=== PATIENT | female | born 1980 | race Caucasian/White ===

== ENCOUNTER 2022-09-22 08:20 | Outpatient (CLI) | payer BC, SELFPAY ==
--- NOTE | ~2022-09-22 | CT_ITS ---
EXAMINATION: CT abdomen pelvis w con DATE: 09/22/2022 09:42 INDICATION: Left lower quadrant abdominal pain TECHNIQUE: Computed tomography (CT) of the abdomen and pelvis was performed with 100 mL Omnipaque-350 intravenous contrast. Automated exposure control and iterative reconstruction technique were employe d. The dose-length product was 487.44 mGy-cm. COMPARISON: None FINDINGS: Lung bases are clear. Heart size is normal. No pericardial or pleural effusion. Liver, gallbladder, s pleen, pancreas and bilateral adrenal glands are normal. Bilateral nephrolithiasis with obstructing s tone/stones in the proximal left ureter resulting in moderate left hydronephrosis. The overall cranio caudal length measures 9 mm, unclear whether this represents a single irregular stone or more likely a collection of 3 separate 3-4 mm stones. There are 3 additional stones measuring up to 3 mm an infer ior calyx of the left kidney. There are 3 nonobstructing stones in the right kidney measuring up to 2 mm . 1 cm right renal cyst. Bowels including the appendix are normal. Bladder is normal. T-shaped IU D in expected position within the endometrial canal of the normal uterus. 3 cm simple appearing cyst/ follicle in the right ovary along with a smaller 1.6 cm peripherally enhancing likely corpus luteum c yst. Small amount of likely physiologic free fluid in the pelvis. No abscess or free intraperitoneal gas. Tiny fat-containing umbilical hernia. No pathologically enlarged abdominal or pelvic lymphadenop athy. Mild bilateral sacral iliac osteoarthritis. Small bone islands at the left femoral head and rig ht acetabulum. IMPRESSION: 1. Bilateral nephrolithiasis with obstructing stone or more likely three separate 3-4 mm bones in the proximal left ureter with moderate left hydronephrosis. Reviewed, dictated and finalized at location A. DENT PROGRAMS ASSISTANT IMPRESSION: 1. Bilateral nephrolithiasis with obstructing stone or more likely three separa te 3-4 mm bones in the proximal left ureter with moderate left hydronephrosis.
[2022-09-22 08:53] LABS: Estimated Glomerular Filt Rate > 60
== END 2022-09-22 08:21 | disposition home or self-care (01) ==
LOC: CHSIMG 08:27
PROVIDERS: PCP Internal Medicine; Visit Provider Internal Medicine
DX: R10.32 Left lower quadrant pain (principal); N20.0 Calculus of kidney; N13.30 Unspecified hydronephrosis
CPT/HCPCS: 74177; Q9967

== ENCOUNTER 2022-10-13 11:06 | Emergency (ER) | payer BC, SELFPAY ==
--- NOTE | ~2022-10-13 | CT_ITS ---
EXAMINATION: CT abdomen pelvis wo con DATE: 10/13/2022 13:11 INDICATION: Left-sided kidney stones TECHNIQUE: Computed tomography (CT) of the abdomen and pelvis was performed without intravenous contr ast. The dose-length product (DLP) was 205.65 mGy-cm. Automated exposure control and iterative recons truction technique were employed. COMPARISON: 09/22/2022 FINDINGS: The lung bases are clear. The heart size is normal. The liver, spleen, pancreas, gallbladde r, and adrenal glands are normal. There is an 8 mm stone proximal left ureter causing moderate left h ydronephrosis. Nonobstructing stones of the right kidney measure up to 3 mm. Nonobstructing stones of the left kidney measure up to 4 mm. No pathologically enlarged abdominal or pelvic lymph nodes are i dentified. No free intraperitoneal gas or evidence of bowel obstruction. There is a tiny umbilical he rnia containing fat. An IUD is present in the uterus in expected position. Colonic diverticulosis is present without evidence of diverticulitis. There is mild lumbar spondylosis. IMPRESSION: 1. 8 mm stone of the proximal left ureter causing moderate left hydronephrosis. 2. Bilateral nonobstructing nephrolithiasis. Reviewed, dictated and finalized at location B. ENTING CELLARS SUPERVISOR
--- NOTE | ~2022-10-13 | XR_ITS ---
EXAMINATION: XR abdomen/kub 1V DATE: 10/13/2022 14:05 INDICATION: Stone in proximal left ureter. TECHNIQUE: A supine view of the abdomen on 2 radiographs was obtained. COMPARISON: CT abdomen and pelvis 10/13/2022 FINDINGS: There are no dilated loops of bowel. There is a 4 mm stone in right kidney. There are 2 sto marcell in left kidney with the larger measuring 4 mm. There is a 10 x 6 mm stone in proximal left ureter . There is an intrauterine device in expected position. There are phleboliths in the pelvis. IMPRESSION: 1. Stones in the kidneys and proximal left ureter. Reviewed, dictated and finalized at location A. ICAL EDUCATION AIDE
[2022-10-13 11:34] LABS: Basophils Absolute Auto 0.1 K/mm3 (0.0-0.1); Basophils Percent Auto 1.4 % (0.2-1.2); Eosinophils Absolute Auto 0.4 K/mm3 (0-0.3); Eosinophils Percent Auto 4.1 % (0-4.4); Hematocrit 39.9 % (37.0-47.0); Hemoglobin 13.9 g/dL (12.0-15.0); Immature Granulocyte Absolute 0.03 K/mm3 (0.00-0.031); Immature Granulocyte Percent A 0.4 % (0-0.5); Lymphocytes Absolute Auto 2.05 K/mm3 (0.9-3.2); Mean Corpuscular HGB Conc 34.8 g/dl (32-36); Mean Corpuscular Hemoglobin 32.6 pg (26-34); Mean Corpuscular Volume 93.4 fl (80-100); Mean Platelet Volume 9.7 fl (7.4-10.4); Monocytes Absolute Auto 0.6 K/mm3 (0.1-0.6); Monocytes Percent Auto 6.9 % (2.6-8.5); Neutrophils Absolute Auto 5.4 K/mm3 (1.3-6.7); Neutrophils Percent Auto 63.2 % (45.5-73.1); Platelet Count Result 256 k/mm3 (150-375); Red Blood Count 4.27 M/mm3 (4.2-5.4); Red Cell Distribution Width 11.9 % (11.5-14.5); White Blood Count 8.5 K/mm3 (4.5-10.0)
[2022-10-13 11:35] LABS: Appearance Urine Slightly Cloudy (Clear); Bilirubin Urine Negative (Negative); Blood Urine 3+ (Negative); Color Urine Yellow (Yellow); Glucose Urine UA Negative (Negative); Ketones Urine Negative (Negative); Leukocyte Esterase Ur Negative LEU/UL (Negative); Nitrate Urine Negative (Negative); Protein Urine 1+ mg/dL (Negative); Urobilinogen Urine 0.2 mg/dL (<2.0)
[2022-10-13 11:39] LABS: Bacteria Urine Trace /hpf; Mucus Urine Moderate /lpf; RBC Urine >75 /hpf (0-2); Squamous Epithelial Cell Urine Many /hpf (Few)
[2022-10-13 11:45] LABS: Alanine Aminotransferase 27 U/L (6-35); Albumin Level 4.7 g/dL (3.5-5.1); Alkaline Phosphatase 56 U/L (38-126); Anion Gap 6 mmol/L (8-16); Aspartate Amino Transferase 28 U/L (14-36); Bilirubin,Total 0.5 mg/dL (0.2-1.3); Blood Urea Nitrogen 17 mg/dL (7-17); Calcium 9.3 mg/dL (8.4-10.2); Carbon Dioxide 30 mmol/L (22-30); Chloride 101 mmol/L (98-107); Estimated Glomerular Filt Rate > 60; Glucose 92 mg/dL (65-110); Potassium 3.7 mmol/L (3.4-5.0); Sodium 137 mmol/L (137-145)
[2022-10-13 11:51] LABS: Add Urine Microscopic? YES
[2022-10-13 12:11] VITALS: BP 144/83; PULSE 94; RESP 14; TEMP 36.2; O2SAT 98
[2022-10-13 12:47] VITALS: BP 161/90; RESP 16; O2SAT 100
[2022-10-13 13:00] VITALS: BP 153/82; PULSE 85; RESP 16; O2SAT 100
--- NOTE | 2022-10-13 13:51 | ED.ABDPAIN ---
HPI - Abdominal Pain General Chief Complaint: Abdominal Pain Stated Complaint: Kidney stones Time Seen by Provider: 10/13/22 12:46 Source: patient and old records reviewed Mode of arrival: ambulatory Limitations: no limitations History of Present Illness HPI narrative: Patient is a 42 y/o female who presents to the ED with c/o LLQ pain. Patient reports she has been dealing with intermittent pain in her left flank region and left lower quadrant since July. Pain became more persistent and bothersome in September. She was seen by her primary care doctor and had an outpatient CT scan of her abdomen/pelvis which showed multiple left-sided ureteral stones. She was scheduled to see Dr. Palacios next week, but reported having worsening pain yesterday and today. She complains of most of her pain today in her left lower abdomen, but states it was more in her flank region yesterday. She has had intermittent nausea, but denies vomiting, fevers, dysuria, hematuria, diarrhea, constipation. Patient has never had kidney stones before. She took Tylenol this morning and does not want anything currently for pain. Related Data Home Medications Medication Instructions Recorded Confirmed hydrochlorothiazide 25 mg tablet 25 mg PO DAILY 09/08/19 09/08/19 lifitegrast 5 % eye drops in a 1 drop ophthalmic (eye) BID 09/08/19 09/08/19 dropperette (Xiidra) losartan 100 mg tablet 100 mg PO DAILY 09/08/19 09/08/19 metoprolol tartrate 25 mg tablet 25 mg PO BID 09/08/19 09/08/19 potassium chloride 10 mEq 10 meq PO DAILY 09/08/19 09/08/19 capsule,extended release Allergies Allergy/AdvReac Type Severity Reaction Status Date / Time CEPHALOSPORIN Allergy Mild hives Uncoded 10/13/22 11:07 Review of Systems Review of Systems: CONSTITUTIONAL: Denies fever, chills, or sweats. CARDIOVASCULAR: Denies chest pain. RESPIRATORY: Denies cough or dyspnea. GASTROINTESTINAL: See HPI. GENITOURINARY: Denies dysuria or hematuria. SKIN: Denies rash or itching. MUSCULOSKELETAL: See HPI. All systems reviewed & are unremarkable except as noted in HPI and below PMFSH Past Medical History Medical History (Updated 10/13/22 @ 14:58 by Carolyn García PA-C) HTN (hypertension) Intermittent palpitations Surgical History Surgical History (Updated 10/13/22 @ 13:57 by Carolyn García PA-C) No pertinent past surgical history Family History Family History Grandparent Hypertension Carotid stenosis Hyperlipidemia Mother Thyroid disease Hypothyroidism Social History Social History Smoking status: Never smoker Alcohol intake: current Exam Narrative: GENERAL: Well appearing, well-nourished, non-toxic, in no acute distress. HEAD: Normocephalic, atraumatic. NECK: Supple. No adenopathy, no masses. RESPIRATORY: Airway patent, respirations nonlabored. Clear to auscultation bilaterally, no rales, rhonchi, wheezing. CARDIOVASCULAR: Regular rate and rhythm without murmurs, rubs, or gallops. Peripheral pulses 2+ and equal bilaterally. ABDOMINAL: Soft, mild tenderness throughout left lower quadrant, no rebound, nondistended, no hepatosplenomegaly. Normoactive BS. No significant CVA tenderness to percussion. MUSCULOSKELETAL: Moves all extremities. Strength/ROM intact without gross deformities. SKIN: Warm, dry, normal color. No rashes. NEURO: A&O X3. Speech clear. Cranial nerves II-XII grossly intact. Steady gait. No ataxic movements. PSYCHIATRIC: Appropriate mood and affect. Normal interaction. Course Vital Signs Vital signs: Vital Signs Temperature 97.2 F L 10/13/22 12:11 Pulse Rate 94 10/13/22 12:11 Respiratory Rate 14 10/13/22 12:11 Blood Pressure 144/83 H 10/13/22 12:11 Pulse Oximetry 98 10/13/22 12:11 Oxygen Delivery Room Air 10/13/22 12:11 Temperature 97.2 F L 10/13/22 12:11 Pulse Rate 85 02/1
== END 2022-10-13 15:28 | disposition home or self-care (01) ==
PROVIDERS: Emergency Medicine; Emergency Provider Physician Assistant; PCP Internal Medicine
DX: N13.2 Hydronephrosis with renal and ureteral calculous obstruction (principal); I10 Essential (primary) hypertension
CPT/HCPCS: 36415; 74018; 74176; 80053; 81001; 81025; 85025; 87086; 99284

== ENCOUNTER 2022-10-19 09:20 | Outpatient (CLI) | payer BC, SELFPAY ==
--- NOTE | 2022-10-19 09:33 | ECG_ITS ---
Measurements Intervals [place] Rate: 72 P: 36 MI: 133 QRS: 53 QRSD: 90 T: 15 QT: 354 QTc: 390 Interpretive Statements SINUS RHYTHM NONSPECIFIC T-WAVE ABNORMALITY NO PREVIOUS ECG AVAILABLE FOR COMPARISON Electronically Signed On 10-19-2022 20:15:46 CONTENT DEVELOPER by Marivel Shultz M.D.
[2022-10-19 09:57] LABS: INR 0.9; Prothrombin Time 10.2 Seconds (9.50-12.10)
== END 2022-10-19 09:21 | disposition home or self-care (01) ==
LOC: CHSLAB 09:23
PROVIDERS: PCP Internal Medicine; Visit Provider Urology
DX: Z01.818 Encounter for other preprocedural examination (principal); N20.1 Calculus of ureter; I10 Essential (primary) hypertension; R94.31 Abnormal electrocardiogram [ECG] [EKG]
CPT/HCPCS: 36415; 85610; 85730; 93005

== ENCOUNTER 2022-10-20 00:56 | Day surgery (SDC) | payer BC, SELFPAY ==
[2022-10-18 12:33] VITALS: BMI 25.0
--- NOTE | 2022-10-18 12:37 | PC.NURSE ---
Report to the Outpatient Waiting Room, entrance under the green pavilion located off [facility], at time 0800 on date 10/20/22. Planned Procedure Time: 1000. Time changes happen often and if your time is changed the preop area will call you the afternoon before. - You and your visitor will be asked to self-screen and do not enter if you have any COVID symptoms. - Only one visitor is requested with a max of two and NO children visitors are allowed at this time. - The patient visitor may be requested to leave or wait in car when not with patient due to distancing restrictions. - A mask is optional within the hospital at this time. Patients may have clear liquids (water, carbonated beverages, clear teas, apple juice) until 3 hours prior to surgery with a maximum of 20 ounces. - No food from midnight until time of surgery Take the following medications with a SIP of water the morning of surgery: PAIN PILL IF NEEDED DO NOT STOP ANY OF YOUR OTHER PRESCRIPTION MEDICATIONS PRIOR TO SURGERY EXCEPT THE FOLLOWING Medications to discontinue per physician: N/A Date to take last dose: N/A Please no make-up, nail nauruan, hairspray, perfume, deodorant, or body powder the day of surgery. No jewelry (including any body piercings) or valuables the day of surgery, leave them at home. Please take a shower or bath the night before, or the morning of, surgery with an antibacterial soap. Wear comfortable, loose fitting clothing. - Jewelry must be removed prior to entering the operating room. Rings and piercings that are not removed may be cut off. - The hospital will not accept responsibility for valuables. - Please leave all valuables, including medications, at home the day of surgery. If you are going home after surgery, a licensed farm truck driver must drive you home. - NO public transportation without another adult if you receive anesthesia. - We recommend that an adult stay with you for 24 hours following discharge. - We also recommend that you do not drive, make important decision, drink alcoholic beverages, or take any drugs that were not prescribed by your health care provider for at least 24 hours after your discharge time. Follow any additional instructions given to you from your surgeon. If you or anyone in your household have experienced Covid symptoms in the past week, please notify your surgeon or the nurse liaison at the phone number below for possible testing. Telephone instructions given to PT - GERMAN SOMERS and asked if any additional questions and then verbalized understanding. Patient advised to call surgeon office or pre surgery nurse liaison [phone] if any additional questions.
[2022-10-20] VITALS (9 sets, daily range): BP systolic 135–165; BP diastolic 81–94; PULSE 67–93; RESP 16–20; TEMP 36.8; O2SAT 98–100
--- NOTE | ~2022-10-20 | XR_ITS ---
EXAMINATION: XR abdomen/kub 1V INDICATION: Left ureteral stone TECHNIQUE: Supine views of the abdomen were obtained on 2 radiographs. COMPARISON: 10/13/2022 FINDINGS: There is an approximately 10 mm x 5 mm stone in the proximal left ureter at the level of th e left L4 transverse process. Bowel contents obscure the previously described kidney stones. There ar e phleboliths of the pelvis. IUD is noted. The bowel gas pattern is normal. IMPRESSION: 1. Proximal left ureteral stone without significant change. Reviewed, dictated and finalized at location B. PER ASSEMBLER
[2022-10-20] MEDS: LACTATED RINGERS 1,000 ML 30 ML IV CONT (08:45)
--- NOTE | 2022-10-20 09:04 | WPDANESEPPF ---
Anes - Initial Pre Proc Eval Procedure: Operation Date: 10/20/22 10:00 Proposed Procedures p Left Ureteral Extracorporeal Shock Wave Lithotripsy, - Tejinder Palacios MD s Possible Cystoscopy, Possible Left Ureteroscopy, Possible Left Retrograde Pyelogram, Possible Left Stone Extraction, Possible Left Stent Placement, Possible Holmium Laser Procedure - Tejinder Palacios MD Date/Time: 10/20/22 09:04 Surgeon: Tejinder Palacios MD Pre Op Diagnosis: left ureteral stone Patient Data Age: 42 Gender: F Height: 1.7 m Weight: 76 kg Last Vital Signs Temp 36.8 C 10/20/22 08:55 Pulse 84 10/20/22 08:55 Resp 20 10/20/22 08:55 BP 165/93 H 10/20/22 08:55 Pulse Ox 100 10/20/22 08:55 O2 Del Method Room Air 10/20/22 08:55 Allergies Allergy/AdvReac Type Severity Reaction Status Date / Time Cephalosporins Allergy Intermediate Hives Verified 10/20/22 08:36 Home Medications Medication Instructions Recorded Confirmed Type potassium chloride 10 mEq 10 meq PO DAILY 09/08/19 10/20/22 History capsule,extended release hydrocodone 5 mg-acetaminophen 325 1 tablet PO Q6H PRN pain #15 tabs 10/13/22 10/20/22 Rx mg tablet ondansetron 4 mg disintegrating 4 mg PO Q8H PRN nausea and 10/13/22 10/18/22 Rx tablet vomiting #20 tabs tamsulosin 0.4 mg capsule (Flomax) 0.4 mg PO DAILY #7 caps 10/13/22 10/18/22 Rx losartan 100 1 tablet PO DAILY 10/18/22 10/20/22 History mg-hydrochlorothiazide 25 mg tablet Patient hx anesthesia problems: none Family hx anesthesia problems: none Results Review: All pre-operative results and documents have been reviewed as part of the pre-operative evaluation. [facility] Past Medical History Medical History HTN (hypertension) Intermittent palpitations Surgical History Surgical History No pertinent past surgical history Family History Family History Grandparent Hypertension Carotid stenosis Hyperlipidemia Mother Thyroid disease Hypothyroidism Social History Social History Smoking status: Never smoker Alcohol intake: current Drinks per week: 2 Substance use: never Substance use type: does not use Living arrangements: with family Spiritual care concerns: No Anes - Eval Final PreProcedure Day of Procedure 10/20/22 09:04 Patient weight: overweight Heart: regular rate and rhythm Lungs: clear to auscultation Airway: Mallampati scale class II Neurological: alert and oriented Last oral intake: >/= 8 hours ASA classification: II Emergent: no Anesthetic plan: proceed Anesthesia type and monitoring: general LMA and standard monitoring Results Review: All pre-operative results and documents have been reviewed as part of the pre-operative evaluation. Informed Consent: The patient's anesthetic plan and its attendant risks and benefits were discussed with the patient/family/POA. Questions were solicited and answers provided to the satisfaction of the patient/family/POA.
--- NOTE | 2022-10-20 09:14 | WPDHPUPDATE1 ---
History and Physical Update Update Date/Time: 10/20/22 09:14 History and Physical has been reviewed, including an updated exam of the patient. There are NO changes in the patient's condition. Risks, benefits, and alternatives have been discussed and questions answered. Patient agrees to proceed with procedure. Proceed with cystoscopy, left retrograde pyelogram, left ureteral stent placement, left ureteral lithotripsy
[2022-10-20] MEDS: levoFLOXacin 500 MG/D5W 100 ML 500 MG/100 ML BAG 100 MG IVPB (09:30)
--- NOTE | 2022-10-20 10:01 | W.PM.PROC2 ---
Procedure Note - Detailed Date of Procedure 10/20/22 Pre-op Diagnosis left ureteral stone Post-op Diagnosis Same Procedure Performed Lithotripsy of left ureteral calculus 10 mm x 5 mm Surgeon Tejinder Palacios MD Anesthesia General Description of Procedure patient is taken the operative suite correctly identified. Once anesthesia was obtained she was positioned in the stone localized in both planes. Patient was given 2500 shocks. Patient tolerated procedure well without any complications was taken recovery stable condition. She will follow-up in 7-10 days with K[facility]. Please send a copy of this to my office Estimated Blood Loss 0 Drains No Packing No Pathology None sent Complications No immediate complications Condition Stable
== END 2022-10-20 11:48 | disposition home or self-care (01) ==
PROVIDERS: PCP Internal Medicine; Visit Provider Urology
PROC: (CPT 50590; principal; 2022-10-20 10:00)
DX: N20.1 Calculus of ureter (principal); I10 Essential (primary) hypertension
CPT/HCPCS: 50590; 74018; J1100; J1200; J1956; J2250; J2590; J2704; J3010; J7030; J7120

== ENCOUNTER 2023-12-19 08:26 | Outpatient (CLI) | payer OTHER, SELFPAY ==
--- NOTE | ~2023-12-19 | MM_ITS ---
EXAMINATION: MM screening tyesha BI w jacy HISTORY: Screening TECHNIQUE: Craniocaudal and mediolateral oblique 3-D tomosynthesis images were obtained and synthetic 2-D images were generated. CAD analysis was submitted and interpreted. COMPARISON: No prior mammogram is available for comparison at this institution. BREAST PARENCHYMAL COMPOSITION: Dense: The breasts are heterogeneously dense, which may obscure small masses FINDINGS: There is no evidence of suspicious mass, calcification, or architectural distortion to sugg est malignancy in either breast. There has been no suspicious interval change. IMPRESSION: 1. No mammographic evidence of malignancy. 2. Recommend routine screening mammography in one year. BI-RADS Category 1: Negative Reviewed, dictated and finalized at location B.
== END 2023-12-19 08:27 | disposition home or self-care (01) ==
LOC: CHSIMG 08:30
PROVIDERS: PCP Internal Medicine; Visit Provider Internal Medicine
DX: Z12.31 Encounter for screening mammogram for malignant neoplasm of breast (principal)
CPT/HCPCS: 77063; 77067

== ENCOUNTER 2024-07-23 13:37 | Outpatient (CLI) | payer OTHER, SELFPAY ==
--- NOTE | ~2024-07-23 | US_ITS ---
EXAMINATION: US thyroid DATE: 07/23/2024 13:59 INDICATION: Thyromegaly. TECHNIQUE: Multiple ultrasound images of the thyroid were obtained. COMPARISON: None. FINDINGS: The right thyroid lobe measures 5.5 x 2.5 x 1.5 cm. The left thyroid lobe measures 5.9 x 1.6 x 1.3 c m. In the right thyroid lobe, there is a 2.0 cm cystic nodule (TI-RADS TR1). In the right thyroid lo be, there is an 8 mm hypoechoic, wider than tall nodule with ill-defined margin without echogenic foc i (TR4). IMPRESSION: 1. Thyroid nodules, likely not clinically significant. No follow-up is needed. Reviewed, dictated and finalized at location A. ORARY STAFF ACCOUNTANT
== END 2024-07-23 13:38 | disposition home or self-care (01) ==
PROVIDERS: PCP Internal Medicine; Visit Provider Internal Medicine
DX: E04.2 Nontoxic multinodular goiter (principal)
CPT/HCPCS: 76536